=== PATIENT | male | born 1970 | race Caucasian/White ===

== ENCOUNTER 2022-06-30 11:59 | Inpatient (IN) ==
[2022-06-30] MEDS ORDERED: POTASSIUM CHLORIDE 20 MEQ TABLET PO PRN ×2 (12:41)
[2022-06-30] MEDS ORDERED: MAGNESIUM SULFATE 2 GM/50 ML BAG IV PRN (12:41)
[2022-06-30] MEDS ORDERED: IPRATROPIUM/ALBUTEROL 3 ML AMPUL.NEB NEB PRN (12:41)
[2022-06-30] MEDS ORDERED: POTASSIUM CHLORIDE 40 MEQ in DEXTROSE 5% IN WATER 500 ML IV PRN (12:41)
[2022-06-30] MEDS ORDERED: POLYETHYLENE GLYCOL 3350 17 GM PACKET PO PRN (12:41)
[2022-06-30] MEDS ORDERED: DEXTROSE 50% 50 ML VIAL IV PRN (12:41)
[2022-06-30] MEDS ORDERED: SENNOSIDES 1 TABLET PO PRN (12:41)
[2022-06-30] MEDS ORDERED: DEXTROSE 31 GM ORAL.SUSP PO PRN (12:41)
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
[2022-06-30 13:31] LABS: Hemoglobin A1C 5.5 % Hgb (4.0-6.0)
[2022-06-30] MEDS ORDERED: hydrALAZINE 20 MG/ML VIAL ONE (14:53)
[2022-06-30] MEDS: 0.9 % SODIUM CHLORIDE 10 ML SYRINGE IV SCH ×3 (14:53→23:18)
[2022-06-30] MEDS: hydrALAZINE 20 MG/ML VIAL IV PRN ×3 (14:57→23:17)
[2022-06-30] MEDS: LABETALOL 5 MG/ML ML IV PRN ×2 (15:45→20:15)
[2022-06-30] MEDS: SEVELAMER 800 MG TABLET PO SCH (17:14)
[2022-06-30] MEDS: INSULIN LISPRO 1 UNIT/0.01 ML UNIT SQ SCH ×2 (17:14→20:24)
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
[2022-06-30] MEDS: ONDANSETRON 4 MG/2 ML VIAL IV PRN ×2 (19:12→23:26)
[2022-06-30] MEDS: HEPARIN 5,000 UNIT/ML VIAL SQ SCH (20:14)
[2022-06-30] MEDS: DOCUSATE SODIUM 100 MG CAPSULE PO SCH (20:15)
[2022-06-30] MEDS ORDERED: SEVELAMER 800 MG TABLET PO PRN (21:00)
[2022-07-01] MEDS: ACETAMINOPHEN 325 MG TABLET PO PRN ×3 (00:08→21:13)
[2022-07-01] MEDS: LABETALOL 5 MG/ML ML IV PRN (02:25)
[2022-07-01] MEDS: 0.9 % SODIUM CHLORIDE 10 ML SYRINGE IV SCH ×3 (04:09→21:13)
[2022-07-01] MEDS: hydrALAZINE 20 MG/ML VIAL IV PRN ×2 (04:09→13:03)
--- NOTE | 2022-07-01 04:17 | Nephrology Progress Note ---
SUBJECTIVE Subjective Patient information: Note initiated : 07/01/22 at 4:08 am Service Date, if different from initiated Date: [] Patient: Darron Gonzalez a 51 y/o M admitted on 06/30/22 for Renal Failure. Chief Complaint: [Nowhere to dialyze] Principal diagnosis: ESRD Interval history: Accepted in transfer from [facility] ED. Home unit was attempting to arrange HD in [place], [place] with [facility]. There may be something going on in home situation in [place] and patient boarded a bus and came to [facility] to stay with sister having no plans of where to dialyze. Presented to [facility] ED where they have to dialysis capabilities. I accepted ti transfer if ok with hospitalist and performed emergency HD as we are extremely limited in capacity to due acute HD. Today, he will undergo a full treatment. I've written a case finisher consult to check on resources, status of transfer to [facility] unit, living arrangements in anticipation of D/C Dr Cameron is checking on diabetic left foot wound with MRI Vein mapping for AVF and echocardiogram are ordered as well. Basically, it looks like this patient has received no care except for minimal HD...by labs and yesterdays level of mentation he was clinically underdialized,,, Pertinent ROS: Does not know how long his feet have been swollen and ischemic. No knowledge of Rx Says IDWG `^ to 8 kg but no comment on fluid intake Has a raised pustular rash on back that occasional is itchy Probably 30 to 60 lb of extra fluid Additional PMFSH (Level 3 Only): Unknown Constitutional Vitals: Vital Signs Temp Pulse Resp BP Pulse Ox O2 Del Method O2 Flow Rate 37.4 C H 70 12 173/92 95 Room Air 2 07/01/22 04:00 07/01/22 04:00 07/01/22 04:05 07/01/22 04:00 07/01/22 04:00 06/30/22 22:00 06/30/22 15:17 Period Temp Pulse Resp BP Sys/Leyva Pulse Ox O2 Del Method O2 Flow Rate Last 24 Hr 36.4 C-37.4 C 65-94 9-26 116-243/66-139 86-98 Nasal Cannula- Room Air 2-2 Intake and Output 06/30/22 07/01/22 07/01/22 19:59 03:59 11:59 Intake Total 120 250 Output Total 1999 Balance -1880 -100 250 Weight 126.507 kg Intake & Output: Intake & Output 06/30/22 07/01/22 07/01/22 19:59 03:59 11:59 Intake Total 120 250 Output Total 1999 Balance -1880 -100 250 Weight 126.507 kg Intake: Oral 120 250 Output: Emesis 100 Hemodialysis UF 2000 Other: Meal Dinner Percent of Meal Consumed 100% General appearance: disheveled, morbidly obese and no acute distress Head Head exam: Present normal inspection Eye Eye exam: Present EOMI, periorbital swelling and PERRL; Absent scleral icterus Pupils: Present PERRL ENT ENT exam: Present mucous membranes moist Neck Neck exam: Absent meningismus Respiratory Respiratory exam: Present decreased breath sounds; Absent respiratory distress or wheezes Cardiovascular Cardiovascular exam: Present normal rate and rhythm, RRR, +S1, +S2 and systolic murmur; Absent gallop GI/Abdominal GI/Abdominal exam: Present normal bowel sounds and soft Extremities Exam Extremities exam: Present pedal edema; Absent calf tenderness or Foot pink and warm Additional comments: Toes with ecchymosis and skin slough Back Exam Back exam: Present rash noted Additional comments: Diffues rasied pustular rash - could be allergic, bug bits or calciphalxsis Neurological Exam Neurological exam: Present CN II-XII intact Additional comments: Improved mentation today Psychiatric Psychiatric exam: Present flat affect Skin Skin exam: Present erythema and rash A/P Assessment and plan (1) ESRD (end stage renal disease) on dialysis: Status: Acute Comment: Start from scratch with drug screening, Echo, evaluation of DM foot ulcer, Diabetic management, Ca, PO4 and PTH evaluation and adjustment of renvela, vein mapping and referral for outpatient AVF creation with Dr Enid Collier (2) Hyperkalemia: Assessment and plan: Improved with HD Status: Acute Comment: Acute HD on 2K bath today x 4 hours TTS while placement arranged (3) Patient's noncompliance with other medical treatment and regimen for other reason: Status: Acute Comment: CM involved in finding an outpatient unit, PCP etc. (4) Hypertension: Status: Acute Comment: Continue aggressive diuresis, then look at LVEF on echo and dose appropriatly (5) Calciphylaxis cutis: Status: Chronic Comment: Phosphate binders and calcitriol or sensipar to decrease PTHi (6) Anemia due to pre-ESRD treated with erythropoietin: Status: Chronic Comment: Aranesp 100 ug q week and check Fe stores (7) Secondary hyperparathyroidism of renal origin: Status: Chronic Comment: As above for calciphalaxsis Plan 1. Alternate HD and isolated U/F until excess fluid is gone 2. Treat anemia with Aranesp and check his iron stores and replace as needed 3. Treat secondary hyperparathyroidism and calciphylaxis by getting phosphorus below 5.0 and PTH 300 4. Wound care consult for his feet 5. Echocardiogram and vein mapping have been ordered 6. Will need an outpatient visit with Dr. Enid Collier for AV fistula creation as its been 2 years that he has been on dialysis and he does have an clotted left AV graft I think Narrative A/P Narrative: As outlined above Plan of Treatment: As outlined above Time Spent With Patient Time: Total time spent is greater than 50% in coordination of care (as documented) at patient's floor/unit and/or counseling patient: Subsequent: Total time with patient: 50 - 65 Minutes
[2022-07-01] MEDS: INSULIN LISPRO 1 UNIT/0.01 ML UNIT SQ SCH ×4 (07:09→21:12)
[2022-07-01 07:20] LABS: Basophils # (Auto) 0.01 K/mcL (0.00-0.30); Basophils % (Auto) 0.1 % (0.0-2.0); Eosinophils # (Auto) 0.07 K/mcL (0.00-0.70); Hematocrit 23.7 % (40.1-51.0); Hemoglobin 7.2 g/dL (13.7-17.5); Lymphocytes # (Auto) 0.85 K/mcL (1.50-4.80); Lymphocytes % (Auto) 12.6 % (15.5-49.0); Mean Cell Volume 97.5 fL (80.0-100.0); Mean Corpuscular HGB Conc 30.4 g/dL (31.0-36.0); Mean Platelet Volume 11.2 fL (8.8-12.5); Monocytes # (Auto) 0.57 K/mcL (0.10-0.90); Monocytes % (Auto) 8.5 % (1.0-12.0); Neutrophils % (Auto) 77.5 % (38.0-78.0); Platelet Count 221 K/mcL (140-440); RBC 2.43 M/mcL (4.63-6.08); Red Cell Distribution Width 15.1 % (11.5-14.5); WBC 6.7 K/mcL (4.5-11.0)
[2022-07-01 07:43] LABS: ALT/SGPT 10 U/L (<40); AST/SGOT 7 U/L (<40); Albumin 3.4 gm/dL (3.2-5.2); Alkaline Phosphatase 98 U/L (39-117); Bilirubin,Direct < 0.2 mg/dL (0-0.3); Bilirubin,Total 0.3 mg/dL (0.1-1.0); Blood Urea Nitrogen 92 mg/dL (6-20); Calcium 9.2 mg/dL (8.6-10.4); Carbon Dioxide 23 mmol/L (22-30); Chloride 89 mmol/L (96-108); Globulin 3.4 gm/dL (2.2-3.7); Glomerular Filtration Rate 5; Glucose 90 mg/dL (70-105); Lactate Dehydrogenase 223 U/L (135-225); Phosphorous 9.8 mg/dL (2.5-4.5); Triglycerides 58 mg/dL (<150); Uric Acid 7.1 mg/dL (2.5-8.0)
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
[2022-07-01] MEDS: SEVELAMER 800 MG TABLET PO SCH ×3 (07:44→17:08)
[2022-07-01] MEDS: HEPARIN 5,000 UNIT/ML VIAL SQ SCH ×2 (08:37→21:13)
[2022-07-01] MEDS: DOCUSATE SODIUM 100 MG CAPSULE PO SCH ×2 (08:37→21:13)
[2022-07-01] MEDS ORDERED: DARBEPOETIN ALFA 100 MCG/ML VIAL IV SCH (09:00)
[2022-07-01 10:31] LABS: Iron 56 ug/dL (61-157); TIBC Calculation 166 ug/dl (228-428); Transferrin % Saturation 34 % (20-50)
[2022-07-01 11:29] LABS: Retic Absolute 0.04 M/mcL (0.03-0.11)
[2022-07-01] MEDS ORDERED: ALBUMIN HUMAN 12.5 GM/50 ML VIAL IV PRN (14:57)
--- NOTE | 2022-07-01 15:42 | Magnetic Resonance Report ---
INDICATION: eval for osteo COMPARISON: X-ray 06/30/2022 FINDINGS: Multiplanar multisequence MR images of the left foot without gadolinium. Diffuse severe cellulitis is noted surrounding the entire foot and ankle mortise. No bone marrow edema. There are no drainable fluid collections. There is Achilles tendon and plantar fascial are normal. IMPRESSION: Diffuse severe cellulitis without evidence of abscess or osteomyelitis. Interpreted and Authenticated by: Ra Laguna M.D. 07/01/22
[2022-07-01] MEDS: cefTRIAXone 2 GM in DEXTROSE 5% IN WATER 50 ML IV SCH (16:24)
[2022-07-01] MEDS ORDERED: VANCOMYCIN 1,750 MG in 0.9 % SODIUM CHLORIDE 500 ML IV SCH (17:00)
[2022-07-01] MEDS: CARVEDILOL 12.5 MG TABLET PO SCH (17:09)
[2022-07-01] MEDS: CALCIUM ACETATE 667 MG TABLET PO SCH (17:09)
[2022-07-01] MEDS: CINACALCET 30 MG TABLET PO SCH (17:09)
[2022-07-01] MEDS: ONDANSETRON 4 MG/2 ML VIAL IV PRN (17:31)
--- NOTE | 2022-07-01 18:38 | General Surgery Consult Note ---
HPI Date of Consult Consult Date: 07/01/22 Requesting physician: Kenyon Figueroa Consult Narrative Patient Information: Note initiated : 07/01/22 at 6:32 pm Service Date, if different from initiated Date: [] Patient: Darron Gonzalez 51 y/o M admitted on 06/30/22 for Renal Failure. Chief Complaint: [] cc:: Evaluation for DFU with blood blisters at tips of toes both feet. I saw this patient in ICU 120/A, along with pedrito Chaidez, Wound care nurse. Reviewed Hospitalist Initial (HPI) and subsequent follow up notes. CC: Kenyon Figueroa Review of Systems All systems: reviewed and no additional remarkable complaints except as stated (Chronic lymphedema, Pulmonary edema and fluid overlaod. Patietn with ESRD, NOT dialysed for over 8 days. ) Constitutional Additional comments: Resting comfortably and conversation. Answers Qs in Yes and NO. Multiple comorbidities ane edema Integumentary Integumentary: Present wounds (Pitting lymphedema both legs and feet with cellulitis. Blood blisters both feet tips of toes with skin fulactuance. 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) Secondary hyperparathyroidism of renal origin (Chronic) Volume overload (Acute) Social History smoking status: Never smoker MEDS/ALLERGIES Home Medications and Allergies Home Medications Medication Instructions Recorded Confirmed Type sevelamer carbonate 800 mg tablet 2,400 mg PO TID 06/30/22 06/30/22 History sevelamer carbonate 800 mg tablet 800 mg PO BID 06/30/22 06/30/22 History acetaminophen 325 mg tablet 650 mg PO QID PRN pain/fever 07/01/22 07/01/22 History amlodipine 10 mg tablet 10 mg PO QDAY 07/01/22 07/01/22 History atorvastatin 80 mg tablet 80 mg PO QDAY 07/01/22 07/01/22 History calcium acetate(phosphat bind) 667 1,334 mg PO BID 07/01/22 07/01/22 History mg tablet carvedilol 12.5 mg tablet (Coreg) 12.5 mg PO BID 07/01/22 07/01/22 History furosemide 40 mg tablet (Lasix) 40 mg PO QDAY 07/01/22 07/01/22 History naloxone 4 mg/actuation nasal 4 mg intranasal PRN PRN over dose 07/01/22 07/01/22 History spray (Narcan) trazodone 50 mg tablet 50 mg PO QHS 07/01/22 07/01/22 History Allergies Allergy/AdvReac Type Severity Reaction Status Date / Time No Known Drug Allergies Allergy Verified 06/30/22 14:58 Physical Examination Vital Signs Vital signs: Temp Pulse Resp BP Pulse Ox O2 Del Method O2 Flow Rate 98.1 F 84 16 143/61 90 Room Air 2 07/01/22 18:12 07/01/22 17:00 07/01/22 18:12 07/01/22 18:12 07/01/22 17:00 07/01/22 18:00 06/30/22 15:17 General physical appearance General physical exam: well developed, well nourished, no distress, no pain and chronically ill Eyes Eye exam: PERRL and normal ocular movement ENT ENT exam: normal pinna, normal nares and no congestion Head Head exam IM: Present atraumatic and normocephalic Neck Neck exam: no masses and no venous distension Cardiovascular Cardiovascular exam IM: Present normal rate and rhythm Peripheral pulses: 2+: dorsalis pedis (L) and dorsalis pedis (R) Respiratory Respiratory exam: other (Decreased air entry at lung bases.) Abdomen Abdomen: Present soft, non tender and bowel sounds Integumentary Integumentary: Present other (Pitting edema both legs, feet extends to tips of toes. Blood blisters with fluctuance especially great toes. 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 ) Neurologic Neurologic: Present normal coordination and other (Chronic skin rash back bilateral Hirsuite.) Musculoskeletal Musculoskeletal: Present other (In bed when examined.) Psychiatric Psychiatric: Present speech is normal and other (Answeres simple questions. ) Results Labs 07/01/22 05:00 07/01/22 05:20 Labs: Abnormal lab results 07/01/22 07/01/22 07/01/22 Range/Units 05:00 05:20 05:20 RBC 2.43 L (4.63-6.08) M/mcL Hgb 7.2 L (13.7-17.5) g/dL Hct 23.7 L (40.1-51.0) % MCHC 30.4 L (31.0-36.0) g/dL RDW 15.1 H (11.5-14.5) % Lymph % (Auto) 12.6 L (15.5-49.0) % Lymph # (Auto) 0.85 L (1.50-4.80) K/mcL Percent Retic (0.50-1.50) % Potassium (3.3-5.1) mmol/L Chloride (96-108) mmol/L Anion Gap (8.0-16.0) BUN (6-20) mg/dL Creatinine (0.7-1.2) mg/dL Phosphorus (2.5-4.5) mg/dL Iron (61-157) ug/dL TIBC (228-428) ug/dl Unsat Iron Binding (112-346) mcg/dL Procalcitonin 0.83 H (<0.10) ng/mL PTH Intact 1010.0 H (15.0-65.0) pg/mL 07/01/22 07/01/22 07/01/22 Range/Units 05:20 05:20 05:20 RBC (4.63-6.08) M/mcL Hgb (13.7-17.5) g/dL Hct (40.1-51.0) % MCHC (31.0-36.0) g/dL RDW (11.5-14.5) % Lymph % (Auto) (15.5-49.0) % Lymph # (Auto) (1.50-4.80) K/mcL Percent Retic 1.67 H (0.50-1.50) % Potassium 6.8 H* (3.3-5.1) mmol/L Chloride 89 L (96-108) mmol/L Anion Gap 23.0 H (8.0-16.0) BUN 92 H (6-20) mg/dL Creatinine 11.0 H* (0.7-1.2) mg/dL Phosphorus 9.8 H* (2.5-4.5) mg/dL Iron 56 L (61-157) ug/dL TIBC 166 L (228-428) ug/dl Unsat Iron Binding 110 L (112-346) mcg/dL Procalcitonin (<0.10) ng/mL PTH Intact (15.0-65.0) pg/mL Diabetes panel 07/01/22 Range/Units 05:20 Sodium 135 (133-145) mmol/L Potassium 6.8 H* (3.3-5.1) mmol/L Chloride 89 L (96-108) mmol/L Carbon Dioxide 23 (22-30) mmol/L BUN 92 H (6-20) mg/dL Creatinine 11.0 H* (0.7-1.2) mg/dL Glucose 90 (70-105) mg/dL Calcium 9.2 (8.6-10.4) mg/dL AST 7 (<40) U/L ALT 10 (<40) U/L Alkaline Phosphatase 98 (39-117) U/L Total Protein 6.8 (5.9-8.4) gm/dL Albumin 3.4 (3.2-5.2) gm/dL Triglycerides 58 (<150) mg/dL Calcium panel 07/01/22 Range/Units 05:20 Calcium 9.2 (8.6-10.4) mg/dL Phosphorus 9.8 H* (2.5-4.5) mg/dL Albumin 3.4 (3.2-5.2) gm/dL Pituitary panel 07/01/22 Range/Units 05:20 Sodium 135 (133-145) mmol/L Potassium 6.8 H* (3.3-5.1) mmol/L Chloride 89 L (96-108) mmol/L Carbon Dioxide 23 (22-30) mmol/L BUN 92 H (6-20) mg/dL Creatinine 11.0 H* (0.7-1.2) mg/dL Glucose 90 (70-105) mg/dL Calcium 9.2 (8.6-10.4) mg/dL Adrenal panel 07/01/22 Range/Units 05:20 Sodium 135 (133-145) mmol/L Potassium 6.8 H* (3.3-5.1) mmol/L Chloride 89 L (96-108) mmol/L Carbon Dioxide 23 (22-30) mmol/L BUN 92 H (6-20) mg/dL Creatinine 11.0 H* (0.7-1.2) mg/dL Glucose 90 (70-105) mg/dL Calcium 9.2 (8.6-10.4) mg/dL Total Bilirubin 0.3 (0.1-1.0) mg/dL AST 7 (<40) U/L ALT 10 (<40) U/L Alkaline Phosphatase 98 (39-117) U/L Total Protein 6.8 (5.9-8.4) gm/dL Albumin 3.4 (3.2-5.2) gm/dL All other labs normal. A/P Narrative A/P Narrative: Assessment: ESRD. Renal failure. NOT dialyzed for over a week. HTN, Anemia,DM2 Secondary hyperparathyroidism Pulmonary edema Lymphedema both legs, feet and toes. Blood blisters both feet toes. Fluctuance. Plan of Treatment: Plan: Will dbride Blisters of toes, both feet Tissue for c/s Plan of care discussed with Nurse and . Following patient during his hospitalization. Later continue to follow at wound care clinic. Time Spent With Patient Time: Total time spent is greater than 50% in coordination of care (as documented) at patient's floor/unit and/or counseling patient: Initial: Total time with patient: 40 - 54 minutes
[2022-07-01] MEDS: traZODone HCL 50 MG TABLET PO SCH (21:13)
[2022-07-01] MEDS: ATORVASTATIN 40 MG TABLET PO SCH (21:13)
--- NOTE | 2022-07-02 03:37 | Ultrasound Report ---
CLINICAL INFORMATION: Venous mapping. Assessment for arterial venous fistula COMPARISON: None. FINDINGS: In the right upper extremity, the superficial and deep veins are patent. Largest diameter vein: Proximal cephalic 2.6 mm. Right upper showing arterial arterial system is patent with triphasic blood flow to Left upper extremity shows scattered thrombus within superficial and deep veins. There is a thrombosed graft. The left arteries are patent with triphasic arterial flow IMPRESSION: Venous mapping as described Interpreted and Authenticated by: Humberto Blackman 07/02/22
[2022-07-02] MEDS: 0.9 % SODIUM CHLORIDE 10 ML SYRINGE IV SCH ×3 (06:06→21:09)
[2022-07-02 06:53] LABS: Hematocrit 24.8 % (40.1-51.0); Hemoglobin 7.5 g/dL (13.7-17.5)
[2022-07-02] MEDS: INSULIN LISPRO 1 UNIT/0.01 ML UNIT SQ SCH ×4 (07:22→20:44)
[2022-07-02 07:42] LABS: Blood Urea Nitrogen 56 mg/dL (6-20); Calcium 8.8 mg/dL (8.6-10.4); Carbon Dioxide 29 mmol/L (22-30); Chloride 91 mmol/L (96-108); Glomerular Filtration Rate 8; Glucose 122 mg/dL (70-105)
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
[2022-07-02] MEDS: CARVEDILOL 12.5 MG TABLET PO SCH ×2 (08:00→18:02)
[2022-07-02] MEDS: SEVELAMER 800 MG TABLET PO SCH ×3 (08:00→18:02)
[2022-07-02] MEDS: CALCIUM ACETATE 667 MG TABLET PO SCH ×2 (08:00→18:02)
[2022-07-02] MEDS: DOCUSATE SODIUM 100 MG CAPSULE PO SCH ×2 (08:00→21:09)
[2022-07-02] MEDS: HEPARIN 5,000 UNIT/ML VIAL SQ SCH ×2 (08:00→21:09)
[2022-07-02] MEDS: amLODIPine 10 MG TABLET PO SCH (08:00)
[2022-07-02] MEDS: FUROSEMIDE 40 MG TABLET PO SCH (08:00)
[2022-07-02] MEDS: ONDANSETRON 4 MG/2 ML VIAL IV PRN (09:46)
--- NOTE | 2022-07-02 10:16 | Nephrology Progress Note ---
SUBJECTIVE Subjective Patient information: Note initiated : 07/02/22 at 10:14 am Service Date, if different from initiated Date: [] Patient: Darron Gonzalez 51 y/o M admitted on 06/30/22 for Renal Failure. Chief Complaint: [Optimization Consultant HD unit] Principal diagnosis: ESRD Interval history: Seen and examined during hemodialysis. Tachycardia has improved Mentation improved Still with a fair amount of edema MRI of the left foot shows extensive cellulitis but no MRI evidence of osteomyelitis Vein mapping complete Echo done...looks abnormal to my eye but official read is pending. Pertinent ROS: Feeling a little better Additional PMFSH (Level 3 Only): N/A Constitutional Vitals: Vital Signs Temp Pulse Resp BP Pulse Ox O2 Del Method O2 Flow Rate 37.1 C 76 17 154/102 98 Room Air 2 07/02/22 08:15 07/02/22 10:11 07/02/22 10:00 07/02/22 10:11 07/02/22 08:00 07/02/22 10:00 07/02/22 02:01 Period Temp Pulse Resp BP Sys/Leyva Pulse Ox O2 Del Method O2 Flow Rate Last 24 Hr 36.3 C-37.1 C 63-88 9-24 115-195/61-142 88-100 Nasal Cannula- Room Air 2-2 Intake and Output 07/01/22 07/02/22 07/02/22 19:59 03:59 11:59 Intake Total 8989 702 7396 Output Total 6700 Balance -4850 620 1220 Weight 122.289 kg Intake & Output: Intake & Output 07/01/22 07/02/22 07/02/22 19:59 03:59 11:59 Intake Total 1727 509 8744 Output Total 6700 Balance -4850 620 1220 Weight 122.289 kg Intake: IV 50 500 Vancomycin 1,750 mg In Sodium 500 Chloride 0.9% 500 ml @ 250 mls/ hr IV ONCE RENU Rx#:[id number] Rocephin 2 gm In Dextrose 5% in 50 Water 50 ml @ 100 mls/hr IV Q24H RENU Rx#:[id number] Oral 0805 580 7322 Output: Emesis 700 Hemodialysis UF 6000 Other: Meal Dinner Breakfast Percent of Meal Consumed 100% 100% Feeding Ability Independent Independent General appearance: disheveled, morbidly obese and no acute distress Head Head exam: Present normal inspection Eye Eye exam: Present EOMI, periorbital swelling and PERRL; Absent scleral icterus Pupils: Present PERRL ENT ENT exam: Present mucous membranes moist Neck Neck exam: Absent meningismus Respiratory Respiratory exam: Present decreased breath sounds; Absent respiratory distress or wheezes Cardiovascular Cardiovascular exam: Present normal rate and rhythm, RRR, +S1, +S2 and systolic murmur; Absent gallop GI/Abdominal GI/Abdominal exam: Present normal bowel sounds and soft Extremities Exam Extremities exam: Present pedal edema; Absent calf tenderness or Foot pink and warm Additional comments: Toes with ecchymosis and skin slough Expanded Upper Extremity Exam Forearm wrist exam: Absent normal inspection (clotted left AVG) Back Exam Back exam: Present rash noted Additional comments: Diffues rasied pustular rash - could be allergic, bug bits or calciphalxsis Neurological Exam Neurological exam: Present CN II-XII intact Additional comments: Improved mentation today Psychiatric Psychiatric exam: Present flat affect Skin Skin exam: Present erythema and rash A/P Assessment and plan (1) ESRD (end stage renal disease) on dialysis: Status: Acute Comment: Start from scratch with drug screening, Echo, evaluation of DM foot ulcer, Diabetic management, Ca, PO4 and PTH evaluation and adjustment of renvela, vein mapping and referral for outpatient AVF creation with Dr Enid Collier (2) Hyperkalemia: Status: Acute Comment: Acute HD on 2K bath today x 4 hours MWF while placement arranged Less than 6 as of 07/02 (3) Hypertension: Status: Chronic Comment: Continue aggressive ultrafiltration, then look at LVEF on echo and dose appropriately (4) Calciphylaxis cutis: Status: Chronic Comment: Phosphate binders and calcitriol or sensipar to decrease PTHi (5) Secondary hyperparathyroidism of renal origin: Assessment and plan: Treat as indicated to keep Ca 9-10, PO4 <6.0 and PTH ~300 Status: Chronic Comment: As above for calciphalaxsis Narrative Plan of Treatment: As outlined above Need echo results Arrange AVF creation post discharge Awaiting HD unit placement Isolated U/F tomorrow Time Spent With Patient Time: Total time spent is greater than 50% in coordination of care (as documented) at patient's floor/unit and/or counseling patient: Subsequent: Total time with patient: 50 - 65 Minutes
[2022-07-02] MEDS: cefTRIAXone 2 GM in DEXTROSE 5% IN WATER 50 ML IV SCH (11:33)
[2022-07-02] MEDS: PROMETHAZINE 25 MG/ML VIAL IV PRN (12:22)
--- NOTE | 2022-07-02 18:02 | General Surgery Procedure Note ---
Date of procedure: Note initiated : 07/02/22 at 5:59 pm Service Date, if different from initiated Date: [] Pre-op diagnosis: Fluid / blood blisters tips of toes 1-5 both feet Post-op diagnosis: same Procedure: Bedside debridement Findings: Patient with ESRD, Pulmonary edema, Lymphedema of both legs, feet and toes. Anesthesia: none Surgeon: Titi John Estimated blood loss: 0 Condition: stable Disposition: ICU
[2022-07-02] MEDS: CINACALCET 30 MG TABLET PO SCH (18:17)
[2022-07-02] MEDS: ATORVASTATIN 40 MG TABLET PO SCH (21:09)
[2022-07-02] MEDS: traZODone HCL 50 MG TABLET PO SCH (21:09)
[2022-07-03] MEDS: 0.9 % SODIUM CHLORIDE 10 ML SYRINGE IV SCH ×3 (05:34→21:10)
[2022-07-03] MEDS ORDERED: ALBUMIN HUMAN 12.5 GM/50 ML VIAL IV PRN (06:00)
[2022-07-03 06:31] LABS: Hematocrit 23.2 % (40.1-51.0)
[2022-07-03 06:44] LABS: Blood Urea Nitrogen 37 mg/dL (6-20); Calcium 8.6 mg/dL (8.6-10.4); Carbon Dioxide 31 mmol/L (22-30); Chloride 90 mmol/L (96-108); Glomerular Filtration Rate 11; Glucose 95 mg/dL (70-105)
--- NOTE | 2022-07-03 07:34 | Nephrology Progress Note ---
SUBJECTIVE Subjective Patient information: Note initiated : 07/03/22 at 7:32 am Service Date, if different from initiated Date: [] Patient: Darron Gonzalez a 51 y/o M admitted on 06/30/22 for Renal Failure. Chief Complaint: [No HD Unit] Principal diagnosis: ESRD Interval history: Planning Isolated U/F today. Seen during HD Slept thru isolated U/F and 6 more liters off so I suppose his dry weight is 90- 94 kg as there is more fluid to remove Will be MWF at [facility] unit with Dr Feliz. This was the initial transfer plan [place] Vein mapping for AVF has been performed here Echo with RV issues noted leading to lots of peripheral edema Weight in Kg Pertinent ROS: N/V with aggressive HD yesterday Additional PMFSH (Level 3 Only): N/A Constitutional Vitals: Vital Signs Temp Pulse Resp BP Pulse Ox O2 Del Method O2 Flow Rate 36.8 C 78 20 148/60 98 Room Air 2 07/03/22 04:01 07/02/22 18:00 07/03/22 04:01 07/03/22 04:01 07/03/22 04:01 07/03/22 04:01 07/02/22 02:01 Period Temp Pulse Resp BP Sys/Leyva Pulse Ox O2 Del Method O2 Flow Rate Last 24 Hr 36.8 C-37.1 C 62-85 8-24 111-195/60-127 92-98 Room Air-Room Air Intake and Output 07/02/22 07/03/22 07/03/22 19:59 03:59 11:59 Intake Total 750 520 Output Total 5800 Balance -5050 520 Weight 117.7 kg 103.51 kg Intake & Output: Intake & Output 07/02/22 07/03/22 07/03/22 19:59 03:59 11:59 Intake Total 750 520 Output Total 5800 Balance -5050 520 Weight 117.7 kg 103.51 kg Intake: IV 50 Rocephin 2 gm In Dextrose 5% in 50 Water 50 ml @ 100 mls/hr IV Q24H [facility] Rx#:[id number] Oral 700 520 Output: Hemodialysis UF 5800 Other: Meal Dinner snack Percent of Meal Consumed 100% 100% Medications Acetaminophen (Acetaminophen 325 Mg Tablet) 650 mg PO Q6HP PRN; Protocol PRN Reason: Per Pain Protocol/Fever > 101 Last Admin: 07/01/22 21:13 Dose: 650 mg Albuterol/Ipratropium (Ipratropium/Albuterol 3 Ml Ampul.Neb) 3 ml NEB Q4HP PRN PRN Reason: Shortness Of Breath Amlodipine Besylate (Amlodipine 10 Mg Tablet) 10 mg PO QDAY [facility] Last Admin: 07/03/22 11:42 Dose: Not Given Atorvastatin Calcium (Atorvastatin 40 Mg Tablet) 80 mg PO HS [facility] Last Admin: 07/02/22 21:09 Dose: 80 mg Calcium Acetate (Calcium Acetate 667 Mg Tablet) 1,334 mg PO BIDCC [facility] Last Admin: 07/03/22 08:03 Dose: 1,334 mg Carvedilol (Carvedilol 12.5 Mg Tablet) 12.5 mg PO BIDCC [facility] Last Admin: 07/03/22 08:05 Dose: 12.5 mg Cinacalcet (Cinacalcet 30 Mg Tablet) 30 mg PO QPMCC [facility] Last Admin: 07/02/22 18:17 Dose: 30 mg Dextrose (Dextrose 50% 50 Ml Vial) 0 ml IV UD PRN PRN Reason: Per Sliding Scale Diagnostic Test (Pha) (Accu-Chek 1 Each Strip) 1 each FS ACHS [facility] Last Admin: 07/03/22 12:45 Dose: 1 each Docusate Sodium (Docusate Sodium 100 Mg Capsule) 100 mg PO BID [facility] Last Admin: 07/03/22 08:03 Dose: 100 mg Furosemide (Furosemide 40 Mg Tablet) 40 mg PO QDAY [facility] Last Admin: 07/03/22 08:03 Dose: 40 mg Glucose (Dextrose 31 Gm Oral.Susp) 15 gm PO PRN PRN PRN Reason: Hypoglycemia Heparin Sodium (Porcine) (Heparin 5,000 Unit/Ml Vial) 5,000 unit SQ Q12 [facility] Last Admin: 07/03/22 08:05 Dose: 5,000 unit Hydralazine HCl (Hydralazine 20 Mg/Ml Vial) 0 mg IV Q2HP PRN PRN Reason: Hypertension Last Admin: 07/01/22 13:03 Dose: 20 mg Potassium Chloride 40 meq/ (Dextrose) 520 mls @ 130 mls/hr IV UD PRN PRN Reason: Potassium < 3 Magnesium Sulfate (Magnesium Sulfate) 2 gm in 50 mls @ 50 mls/hr IV UD PRN PRN Reason: Magnesium </= 1.6 Ceftriaxone Sodium 2 gm/ (Dextrose) 50 mls @ 100 mls/hr IV Q24H [facility]; Protocol Last Infusion: 07/02/22 12:24 Dose: Infused Albumin Human (Buminate) 12.5 gm in 50 mls @ 100 mls/hr IV PRN PRN PRN Reason: Hypotension Sodium Chloride (Sodium Chloride 0.9%) 250 mls @ 20 mls/hr IV .[id number] [facility] Stop: 07/03/22 20:14 Last Infusion: 07/03/22 10:40 Dose: Infused Insulin Human Lispro (Insulin Lispro 1 Unit/0.01 Ml Unit) 0 unit SQ ACHS [facility]; Protocol Last Admin: 07/03/22 13:01 Dose: Not Given Labetalol HCl (Labetalol 5 Mg/Ml Ml) 0 mg IV Q2HP PRN PRN Reason: Hypertension Last Admin: 07/01/22 02:25 Dose: 10 mg Ondansetron HCl (Ondansetron 4 Mg/2 Ml Vial) 4 mg IV Q4HP PRN PRN Reason: Nausea And Vomiting Last Admin: 07/02/22 09:46 Dose: 4 mg Polyethylene Glycol (Polyethylene Glycol 3350 17 Gm Packet) 17 gm PO DAILYP PRN PRN Reason: Constipation Potassium Chloride (Potassium Chloride 20 Meq Tablet) 40 meq PO UD PRN PRN Reason: Potssium is 3-3.5 Potassium Chloride (Potassium Chloride 20 Meq Tablet) 40 meq PO UD PRN PRN Reason: Potassium < 3 Promethazine HCl (Promethazine 25 Mg/Ml Vial) 12.5 mg IV Q4-6HP PRN PRN Reason: Nausea And Vomiting Last Admin: 07/02/22 12:22 Dose: 12.5 mg Senna (Sennosides 1 Tablet) 2 tab PO DAILYP PRN PRN Reason: Constipation Sevelamer Carbonate (Sevelamer 800 Mg Tablet) 800 mg PO BIDP PRN PRN Reason: SNACKS Sevelamer Carbonate (Sevelamer 800 Mg Tablet) 2,400 mg PO TIDCC [facility] Last Admin: 07/03/22 08:03 Dose: 2,400 mg Sodium Chloride (0.9 % Sodium Chloride 10 Ml Syringe) 10 ml IV Q8 [facility] Last Admin: 07/03/22 05:34 Dose: 10 ml Trazodone HCl (Trazodone Hcl 50 Mg Tablet) 50 mg PO QHS [facility] Last Admin: 07/02/22 21:09 Dose: 50 mg General appearance: disheveled, morbidly obese and no acute distress Head Head exam: Present normal inspection Eye Eye exam: Present EOMI, periorbital swelling and PERRL; Absent scleral icterus Pupils: Present PERRL ENT ENT exam: Present mucous membranes moist Neck Neck exam: Absent meningismus Respiratory Respiratory exam: Present decreased breath sounds; Absent respiratory distress or wheezes Cardiovascular Cardiovascular exam: Present normal rate and rhythm, RRR, +S1, +S2 and systolic murmur; Absent gallop GI/Abdominal GI/Abdominal exam: Present normal bowel sounds and soft Extremities Exam Extremities exam: Present pedal edema; Absent calf tenderness or Foot pink and warm Additional comments: Toes with ecchymosis and skin slough => sharp debridement by Dr John Expanded Upper Extremity Exam Forearm wrist exam: Absent normal inspection (clotted left AVG) Back Exam Back exam: Present rash noted Additional comments: Diffues rasied pustular rash - could be allergic, bug bits or calciphalxsis Neurological Exam Neurological exam: Present CN II-XII intact Additional comments: Improved mentation today Psychiatric Psychiatric exam: Present flat affect Skin Skin exam: Present erythema and rash A/P Assessment and plan (1) ESRD (end stage renal disease) on dialysis: Status: Chronic Comment: Start from scratch with drug screening, Echo, evaluation of DM foot ulcer, Diabetic management, Ca, PO4 and PTH evaluation and adjustment of renvela, vein mapping and referral for outpatient AVF creation with Dr Enid Collier (2) Volume overload: Status: Acute Comment: Improved with about 18 kg of fluid removal... Still more to lose (3) Secondary hyperparathyroidism of renal origin: Status: Chronic Comment: As below for calciphalaxsis Renvela 2400 mg po TID with meals and 1 po with snacks Phoslo 667 mg capsules 2 po TID with meals Sensipar 30 mg po qPM meal (4) Calciphylaxis cutis: Status: Chronic Comment: Phosphate binders and sensipar to decrease PTHi See above (5) Hypertension: Status: Chronic Comment: Continue aggressive ultrafiltration, then look at LVEF on echo and dose appropriately (6) Hyperkalemia: Status: Acute Comment: Acute HD on 2K bath today x 4 hours MWF while placement arranged Less than 6 as of 07/02 Improved to non-critical levels by 07/02/2022 Narrative Plan of Treatment: Accepted to Dr Feliz's unit in [place], [place] starting thursday07/07/2022 If discharged tomorrow thats good. if not discharged tomorrow then we will dialyze and will have to be kept to thursday due to medicare rules or no pay for HD. Time Spent With Patient Time: Total time spent is greater than 50% in coordination of care (as documented) at patient's floor/unit and/or counseling patient:
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
[2022-07-03] MEDS: INSULIN LISPRO 1 UNIT/0.01 ML UNIT SQ SCH ×4 (07:42→21:10)
[2022-07-03] MEDS ORDERED: 0.9 % SODIUM CHLORIDE 250 ML IV SCH (07:45)
[2022-07-03] MEDS: CALCIUM ACETATE 667 MG TABLET PO SCH ×2 (08:03→18:23)
[2022-07-03] MEDS: DOCUSATE SODIUM 100 MG CAPSULE PO SCH ×2 (08:03→21:04)
[2022-07-03] MEDS: FUROSEMIDE 40 MG TABLET PO SCH (08:03)
[2022-07-03] MEDS: SEVELAMER 800 MG TABLET PO SCH ×3 (08:03→18:25)
[2022-07-03] MEDS: HEPARIN 5,000 UNIT/ML VIAL SQ SCH ×2 (08:05→21:04)
[2022-07-03] MEDS: CARVEDILOL 12.5 MG TABLET PO SCH ×2 (08:05→18:23)
--- NOTE | 2022-07-03 08:35 | Operative Note ---
DATE OF OPERATION: 07/02/2022 DATE OF PROCEDURE: 07/02/2022 PREOPERATIVE DIAGNOSIS: Fluid and blood-filled blisters, tips of toes 1 through 5, both feet. POSTOPERATIVE DIAGNOSIS: Fluid and blood-filled blisters tips of toes 1 through 5, both feet. The blister sizes were between 1 to 1.5 cm. PROCEDURE: Bedside debridement of blood blisters. Tissue obtained from left great toe wound base for culture and sensitivity. ESTIMATED BLOOD LOSS: 0 mL. SURGEON: Titi John MD ANESTHESIA: Procedure was carried out without any anesthetic. INDICATIONS: I saw this patient in consultation along with Marilee Dolan RN in room 120A, intensive care unit. DESCRIPTION OF PROCEDURE: The patient was admitted with acute pulmonary edema, lymphedema of both lower extremities, cellulitis of feet and blood / fluid-filled blisters at the tips of toes of both feet, 1-2 CM size With adequate nursing help and with the patient's verbal consent, I proceeded to clean the wound sites and debrided his blisters. I used a pickup and scissors. The devitalized skin was removed from all the toes. Deep tissue specimen was obtained from the left great toe, medial aspect. Dressings consisted of bacitracin ointment, gauze, and Kerlix. PLAN: I will follow this patient, along with the nursing staff. Procedure was well tolerated. VD:andria Job ID: [id number] Doc ID: [id number] Titi John MD MTDD
[2022-07-03] MEDS: amLODIPine 10 MG TABLET PO SCH (11:42)
[2022-07-03] MEDS: cefTRIAXone 2 GM in DEXTROSE 5% IN WATER 50 ML IV SCH (13:20)
[2022-07-03] MEDS: CINACALCET 30 MG TABLET PO SCH (18:23)
[2022-07-03] MEDS: hydrALAZINE 20 MG/ML VIAL IV PRN (19:10)
[2022-07-03] MEDS: ATORVASTATIN 40 MG TABLET PO SCH (21:04)
[2022-07-03] MEDS: traZODone HCL 50 MG TABLET PO SCH (21:04)
[2022-07-04] MEDS: LABETALOL 5 MG/ML ML IV PRN (02:55)
[2022-07-04] MEDS: PROMETHAZINE 25 MG/ML VIAL IV PRN (02:55)
[2022-07-04] MEDS: 0.9 % SODIUM CHLORIDE 10 ML SYRINGE IV SCH ×3 (05:06→21:11)
[2022-07-04] MEDS: ONDANSETRON 4 MG/2 ML VIAL IV PRN (06:07)
--- NOTE | 2022-07-04 06:42 | Nephrology Progress Note ---
SUBJECTIVE Subjective Patient information: Note initiated : 07/04/22 at 6:39 am Service Date, if different from initiated Date: [] Patient: Darron Gonzalez 51 y/o M admitted on 06/30/22 for Renal Failure- Hyperkalemia,Cellulitis. Chief Complaint: [No HD unit] Principal diagnosis: ESRD Interval history: Arrangements for outpatient HD in [place] starting 07/07/22 If patient not discharged today, HD orders written for today. Seen on dialysis today so he will be discharged tomorrow I offered him a TTS slot here at [facility] but he would rather be MWF My only concern is he has a number of medical problems that impact his dialysis but are not kidney related that will need to be addressed as an outpatient. Specifically his cardiovascular status, compliance with his medication, and wound care. Additionally he will require creation of an AV fistula as an outpatient. This is now falls under the jurisdiction of Dr. Feliz and there is a vein mapping study done during this hospitalization to get this done in a timely fashion. He has a failed left AV graft. Pertinent ROS: Nothing new Still with edema Additional PMFSH (Level 3 Only): N/A Constitutional Vitals: Vital Signs Temp Pulse Resp BP Pulse Ox O2 Del Method O2 Flow Rate 36.9 C 66 16 126/63 97 Room Air 2 07/04/22 03:26 07/04/22 03:26 07/04/22 03:26 07/04/22 03:26 07/04/22 03:26 07/04/22 03:26 07/02/22 02:01 Period Temp Pulse Resp BP Sys/Leyva Pulse Ox O2 Del Method O2 Flow Rate Last 24 Hr 36.4 C-37.0 C 54-74 16-18 111-172/47-99 79-100 Room Air-Room Air Intake and Output 07/03/22 07/04/22 07/04/22 19:59 03:59 11:59 Intake Total 530 360 Output Total 6000 300 Balance -5470 360 -300 Weight 116.664 kg Intake & Output: Intake & Output 07/03/22 07/04/22 07/04/22 19:59 03:59 11:59 Intake Total 530 360 Output Total 6000 300 Balance -5470 360 -300 Weight 116.664 kg Intake: IV 50 Rocephin 2 gm In Dextrose 5% in 50 Water 50 ml @ 100 mls/hr IV Q24H [facility] Rx#:[id number] Oral 480 360 Output: Hemodialysis UF 6000 Estimated Blood Loss 300 Other: Meal Dinner Nourishment/Supplement Percent of Meal Consumed 100% 100% Feeding Ability Independent Independent Nourishment/Supplement name yogurt and egg salad and crackers General appearance: disheveled, morbidly obese and no acute distress Head Head exam: Present normal inspection Eye Eye exam: Present EOMI, periorbital swelling and PERRL; Absent scleral icterus Pupils: Present PERRL ENT ENT exam: Present mucous membranes moist Neck Neck exam: Absent meningismus Respiratory Respiratory exam: Present decreased breath sounds; Absent respiratory distress or wheezes Cardiovascular Cardiovascular exam: Present normal rate and rhythm, RRR, +S1, +S2 and systolic murmur; Absent gallop GI/Abdominal GI/Abdominal exam: Present normal bowel sounds and soft Extremities Exam Extremities exam: Present pedal edema; Absent calf tenderness or Foot pink and warm Additional comments: Toes with ecchymosis and skin slough => sharp debridement by Dr John Expanded Upper Extremity Exam Forearm wrist exam: Absent normal inspection (clotted left AVG) Back Exam Back exam: Present rash noted Additional comments: Diffues rasied pustular rash - could be allergic, bug bits or calciphalxsis Neurological Exam Neurological exam: Present CN II-XII intact Additional comments: Improved mentation today Psychiatric Psychiatric exam: Present flat affect Skin Skin exam: Present erythema and rash A/P Assessment and plan (1) Volume overload: Plan: Daily weight Status: Acute Comment: Improved with about 18 kg of fluid removal... 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-ESRD treated with erythropoietin: Plan: Aranesp 100 ug IV given once this week Status: Chronic Comment: Aranesp 100 ug q week and check Fe stores (4) Calciphylaxis cutis: Status: Chronic Comment: Phosphate binders and sensipar to decrease PTHi See above (5) Hypertension: Plan: No stranger to HTN based on LVH seen on Echo but much better with fluid removal Status: Chronic Comment: Continue aggressive ultrafiltration, then look at LVEF on echo and dose appropriately (6) Patient's noncompliance with other medical treatment and regimen for other reason: Status: Acute Comment: CM involved in finding an outpatient unit, PCP etc. (7) Hyperkalemia: Status: Acute Comment: Acute HD on 2K bath today x 4 hours MWF while placement arranged Less than 6 as of 07/02 Improved to non-critical levels by 07/02/2022 (8) ESRD (end stage renal disease) on dialysis: Plan: Vein mapping Status: Chronic Comment: Start from scratch with drug screening, Echo, evaluation of DM foot ulcer, Diabe tic management, Ca, PO4 and PTH evaluation and adjustment of renvela, vein mapping done and leave vascular surgery referral for outpatient AVF creation to Dr Feliz to arrange Plan Discharge tomorrow with follow-up in Dr. Feliz's [facility] a unit on Thursday Narrative Plan of Treatment: Accepted to Dr Feliz's unit in [place], [place] starting thursday07/07/2022 I will sign off but if further nephrology needs arise feel free to call Dr. Joseph starting ThursdayJUL 05, 2022 Time Spent With Patient Time: Total time spent is greater than 50% in coordination of care (as documented) at patient's floor/unit and/or counseling patient: Subsequent: Total time with patient: 35 - 49 minutes
[2022-07-04 06:57] LABS: Basophils # (Auto) 0.01 K/mcL (0.00-0.30); Basophils % (Auto) 0.1 % (0.0-2.0); Eosinophils # (Auto) 0.19 K/mcL (0.00-0.70); Eosinophils % (Auto) 2.4 % (0.0-7.0); Hematocrit 26.2 % (40.1-51.0); Hemoglobin 8.2 g/dL (13.7-17.5); Lymphocytes # (Auto) 1.12 K/mcL (1.50-4.80); Mean Corpuscular HGB Conc 31.3 g/dL (31.0-36.0); Monocytes # (Auto) 0.91 K/mcL (0.10-0.90); Monocytes % (Auto) 11.4 % (1.0-12.0); Neutrophils % (Auto) 71.8 % (38.0-78.0); Platelet Count 272 K/mcL (140-440)
[2022-07-04 07:44] LABS: Blood Urea Nitrogen 62 mg/dL (6-20); Calcium 8.4 mg/dL (8.6-10.4); Carbon Dioxide 28 mmol/L (22-30); Chloride 89 mmol/L (96-108); Glomerular Filtration Rate 8; Glucose 96 mg/dL (70-105)
[2022-07-04] MEDS: INSULIN LISPRO 1 UNIT/0.01 ML UNIT SQ SCH ×4 (07:47→21:10)
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
[2022-07-04] MEDS: HEPARIN 5,000 UNIT/ML VIAL SQ SCH ×2 (10:12→21:08)
[2022-07-04] MEDS: DOCUSATE SODIUM 100 MG CAPSULE PO SCH ×2 (10:12→21:08)
[2022-07-04] MEDS: CALCIUM ACETATE 667 MG TABLET PO SCH ×2 (10:19→16:27)
[2022-07-04] MEDS: CARVEDILOL 12.5 MG TABLET PO SCH ×2 (10:19→16:27)
[2022-07-04] MEDS: FUROSEMIDE 40 MG TABLET PO SCH (10:20)
[2022-07-04] MEDS: SEVELAMER 800 MG TABLET PO SCH ×3 (10:20→16:26)
[2022-07-04] MEDS: amLODIPine 10 MG TABLET PO SCH (10:20)
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
[2022-07-04] MEDS: ACETAMINOPHEN 325 MG TABLET PO PRN (12:22)
[2022-07-04] MEDS: cefTRIAXone 2 GM in DEXTROSE 5% IN WATER 50 ML IV SCH (15:36)
[2022-07-04] MEDS: CINACALCET 30 MG TABLET PO SCH (16:27)
[2022-07-04] MEDS: ATORVASTATIN 40 MG TABLET PO SCH (21:08)
[2022-07-04] MEDS: traZODone HCL 50 MG TABLET PO SCH (21:08)
[2022-07-05] MEDS: 0.9 % SODIUM CHLORIDE 10 ML SYRINGE IV SCH (04:05)
[2022-07-05] MEDS: hydrALAZINE 20 MG/ML VIAL IV PRN (04:09)
[2022-07-05] MEDS: INSULIN LISPRO 1 UNIT/0.01 ML UNIT SQ SCH (07:30)
[2022-07-05] MEDS: DOCUSATE SODIUM 100 MG CAPSULE PO SCH (08:48)
[2022-07-05] MEDS: CALCIUM ACETATE 667 MG TABLET PO SCH (08:48)
[2022-07-05] MEDS: FUROSEMIDE 40 MG TABLET PO SCH (08:49)
[2022-07-05] MEDS: SEVELAMER 800 MG TABLET PO SCH (08:49)
[2022-07-05] MEDS: CARVEDILOL 12.5 MG TABLET PO SCH (08:49)
[2022-07-05] MEDS: amLODIPine 10 MG TABLET PO SCH (08:49)
[2022-07-05] MEDS: HEPARIN 5,000 UNIT/ML VIAL SQ SCH (08:49)
[2022-07-05] MEDS ORDERED: CEPHALEXIN 500 MG CAPSULE PO SCH (09:00)
== END 2022-07-05 11:18 | disposition home or self-care (01) | DRG 640 ==
LOC: ICU 14:03 → MEDSUR 07-03 17:25
PROVIDERS: ADMIT Internal Medicine; ATTEND Internal Medicine